=== PATIENT | female | born 1945 | race Caucasian/White ===

== ENCOUNTER → 2018-03-04 | Outpatient (CLI) | payer OTHER, BC | LOC: BMCIMAGING 12:34 | PROVIDERS: ATTEND Family Medicine | DX: S42.201A Unspecified fracture of upper end of right humerus, initial encounter for closed fracture (principal); S22.050S Wedge compression fracture of T5-T6 vertebra, sequela ==

== ENCOUNTER → 2018-10-30 | Outpatient (CLI) | payer OTHER, BC | LOC: FIMAGING 13:00 | PROVIDERS: ATTEND Family Medicine | DX: R05 Cough (principal) ==